=== PATIENT | male | born 1935 | race Caucasian/White ===

== ENCOUNTER → 2019-11-18 | Outpatient (CLI) | payer MEDICARE, SELFPAY | END | disposition home or self-care (01) | PROVIDERS: Visit Provider Dermatology | DX: Z48.817 Encounter for surgical aftercare following surgery on the skin and subcutaneous tissue (principal) | CPT/HCPCS: 87070; 87077; 87186; 87205 ==

== ENCOUNTER 2020-07-14 12:37 | Outpatient (RCR) | payer MEDICARE, SELFPAY | END 2020-07-14 23:59 | LOC: IMMUN 12:37 | PROVIDERS: PCP Internal Medicine; Visit Provider Family Medicine | DX: Z23 Encounter for immunization (principal) | CPT/HCPCS: 0011A; 0012A; 91301 ==

== ENCOUNTER → 2023-10-17 | Outpatient (CLI) | payer MEDICARE, SELFPAY ==
[2023-10-17 12:22] LABS: Hematocrit 39.9 % (40-54); Hemoglobin 13.4 g/dL (13.0-16.5); Mean Corp Hgb Conc 33.6 g/dL (32-36); Mean Corpuscular Hgb 32.6 pg (27.0-32.0); Mean Corpuscular Volume 97.1 fL (80-94); Mean Platelet Vol. 10.5 fl (6.2-12.0); Platelet Count 224 K/mm3 (150-450); RBC Distribution Width CV 13.2 % (11.6-14.6); RBC Distribution Width SD 47.8 fl (35.1-43.9); Red Blood Count 4.11 M/mm3 (4.6-6.2)
[2023-10-17 13:28] LABS: Anion Gap 4 (5-15); BUN 20 mg/dL (7-18); BUN/Creat Ratio 21.4 RATIO (10-20); Calcium,Total 9.6 mg/dL (8.5-10.1); Chloride 107 mmol/L (98-107); Creatinine, Serum 0.93 mg/dL (0.70-1.30); EST Glomerular Filtration Rate 82 mL/min (>60); Est Glom Filt Rate - Afr Amer 99 mL/min (>60); Glucose 88 mg/dL (74-106); Potassium 4.3 mmol/L (3.5-5.1); Sodium Level 138 mmol/L (136-145)
== END | disposition home or self-care (01) ==
PROVIDERS: PCP Internal Medicine; Referring Provider Physician Assistant Surgical; Visit Provider Physician Assistant Surgical
DX: Z01.818 Encounter for other preprocedural examination (principal)
CPT/HCPCS: 36415; 80048; 85027

== ENCOUNTER → 2024-02-05 | Outpatient (CLI) | payer MEDICARE, SELFPAY ==
--- NOTE | 2024-02-05 09:00 | ASPOS_PTH ---
PATIENT: CHRISTINA HUDDLESTON LOC: LAB U#:[id number] AGE/SX: 88/M ROOM: RE02/05/[address]: Dr. Cory Obrien MD : [id number] BED: DIS: 02/05/2024 SPEC #: [id number] RECD: 02/05/24 09:30 STATUS: BENNIE REDaly #: [id number] NATY: 02/05/24 09:[address]: Cory Obrien DEPT: CYTOLOGY RECD BY: Emily Henry ENTERED: 02/05/24 11:20 SP TYPE: ASP HERE OTHR DR: Dr. Anne Moulton MD Tissues: Neck, NOS Procedures: Surgery Specimen Level IV Cytology Other Fine Needle Asp on Site HEADER OPERATION: Fine needle aspiration left post neck PRE-OP DIAGNOSIS: Left post neck TISSUE SUBMITTED: Smears and fluid for cytology DIAGNOSIS CYTOLOGY Fine needle aspiration, left posterior neck mass (smears and cellblock): Mature adipose tissue consistent with lipoma. See comment. AM/mr 02/06/2024 COMMENT The specimen is evaluated at the time of biopsy by Dr. Leigh. Immediate Evaluation = Mature adipose tissue consistent with lipoma. CYTOLOGY STUDY Slides are reviewed. CYTOLOGY GROSS Received is 0.2 ml of vela material labeled with the patient's name, and designated Left neck. 3 imprints and 2 paps are made from the submitted fluid and the rest is added to CytoLyt for cell block preparation. Submitted for cytology study. AM/mr 02/05/2024 TC:5 CPT:82155,[id number]
== END | disposition home or self-care (01) ==
LOC: LAB 09:09
PROVIDERS: PCP Internal Medicine; Referring Provider Otolaryngology; Visit Provider Otolaryngology
DX: R22.1 Localized swelling, mass and lump, neck (principal)
CPT/HCPCS: 10021; 88161; 88305

== ENCOUNTER → 2024-09-01 | Outpatient (CLI) | payer MEDICARE, SELFPAY ==
--- NOTE | 2024-09-01 17:03 | MRI_ITS ---
PROCEDURE: MRI left hand without and with IV contrast REASON FOR EXAM: SUSPECTED MASS TECHNIQUE: Multisequence multiplanar MR images of the left hand were obtained before and after the administration of 15 mL of intravenous Clariscan contrast. COMPARISON: None. FINDINGS Ovoid cystic lesion along the palmar aspect of the 5th flexor tendon at the level of the proximal phalanx abutting the flexor tendon sheath measuring 10 x 15 x 19 mm (AP, TV and CC dimensions) without associated enhancement or surrounding soft tissue edema. Adjacent flexor tendon is intact. No tenosynovitis. Osseous structures are intact and without evidence of fracture, marrow edema or marrow replacement. Flexor and extensor tendons are intact. Collateral ligaments are intact. No joint effusions. Normal alignment. MRI/Upper Ext No Joint W/WO Cont IMPRESSION: Nonspecific nonenhancing cystic lesion abutting the 5th flexor tendon at the le quinn of the proximal phalanx, potentially a ganglion. Reading Location: [facility]
== END | disposition home or self-care (01) ==
LOC: MRI 16:37
PROVIDERS: PCP Internal Medicine; Referring Provider Surgery Plastic and Reconstructive Surgery; Visit Provider Surgery Plastic and Reconstructive Surgery
DX: R60.9 Edema, unspecified (principal)
CPT/HCPCS: 73220; A9575; A4216

== ENCOUNTER 2024-10-05 06:56 | Day surgery (SDC) | payer MEDICARE, SELFPAY ==
--- NOTE | 2024-09-30 18:45 | PAT.ANE_ITS ---
Pre-Assessment Diagnosis/Proposed Procedure Planned Operative Procedure(s): (L) Excision left small finger mass Anesthesia History Anesthesia History - ethyl blender: Anesthesia History - ethyl blender Hx Hospitalization No 09/30/24 13:06 Any Problems With Anesthesia Yes: DURING SHOULDER SURGERY 09/30/24 13:06 TROUBLE BREATHING TOWARDS END DUE TO BAD LUNGS Cholinesterase deficiency No 09/30/24 13:06 You/Your Family Experience No 09/30/24 13:06 fever (hyperthermia) with Relationship Recent Exposure to Contagious Disease Does patient have nerve No 09/30/24 13:06 stimulator Patient instructed to have device shut off --Does patient have Pacemaker or ICD? When Was Last Pacemaker Check QUESTION #4 FULL TEXT: You/Your Family Experience fever (hyperthermia) with Anesthesia Last Oral Intake Last Oral intake: Last Oral Intake NPO since Meds taken in AM with sips of water? Meds patient instructed to take am of surgery PONV PONV - ethyl blender: PONV - ethyl blender Female No 09/30/24 13:06 HX of Motion Sickness Yes 09/30/24 13:06 HX of N/V After Surgery No 09/30/24 13:06 Non-Smoker Yes 09/30/24 13:06 Duration of Surgery greater No 09/30/24 13:06 than 60 minutes Number of Risk Factors 2 09/30/24 13:06 PONV Score Moderate Risk 09/30/24 13:06 Height & Weight Height & Weight: Anesthesia: Height & Weight Height 5 ft 6.5 in 07/29/23 09:55 Respiratory Assessment Respiratory Assessment - ethyl blender: Respiratory Tract Infection Hx - ethyl blender Hx Respiratory Tract Infection No 09/30/24 13:06 STOP Sleep Apnea STOP Sleep Apnea - ethyl blender: STOP Sleep Apnea - ethyl blender Hx Hypertension Yes: CONTROLLED WITH MED 09/30/24 13:06 Hx Sleep Apnea No 09/30/24 13:06 CPAP BIPAP Do you snore loudly (louder No 09/30/24 13:06 than talking or can be heard Do you often feel tired/ No 09/30/24 13:06 fatigued/ sleepy during daytime? Has anyone observed you stop No 09/30/24 13:06 breathing during sleep? STOP Results Negative 09/30/24 13:06 QUESTION #5 FULL TEXT : Do you snore loudly (louder than talking or can be heard through closed doors)? 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 Specify any problems Hx of Preganancy in last 3 N/A 09/30/24 13:06 Months Nurse Filling Out Transfusion NBUCHER 09/30/24 13:06 & Questions: Date: 09/30/24 09/30/24 13:06 Time: 13:09 09/30/24 13:06 Patient unable to answer at this time (ie. confused, unrespo /Reproduction History /Reproductive History - ethyl blender: /Reproductive Hx- ethyl blender Hx Now No 09/30/24 13:06 Gestational Age (in weeks): EDC: Hx Hx Para Hx Section SAB No 09/30/24 13:06 PFSH Medical History (Updated 09/30/24 @ 13:16 by Lidia Gonzalez) Wears hearing aid Loss of hearing Wears glasses BPH (benign prostatic hyperplasia) Cancer Anxiety History of steroid therapy Prostate disease Syncope Former smoker Heartburn Gastric reflux History of edema History of echocardiogram History of stress test History of Holter monitoring Cardiology follow-up encounter Nonsustained paroxysmal ventricular tachycardia Dyspnea on exertion Orthostatic hypotension SVT (supraventricular tachycardia) Syncope BPH associated with nocturia Hyperlipidemia Recurrent urticaria GERD (gastroesophageal reflux disease) Asthma History of panic attacks Diverticulosis of colon Benign neoplasm of colon Home Medications ?Medication ?Instructions ?Recorded ?Last Taken ?Type albuterol sulfate 90 mcg/actuation 2 puff inhalation Q 4H PRN 11/22/20 Unknown History aerosol inhaler shortness of breath or wheez ing glucosamine 500 1 cap PO BID 11/22/20 Unknow n History dn-f[place]-cjwecvtl comp 400 mg-D3 667 unit-C-Mn cap montelukast 10 mg tablet 10 mg PO DAILY 11/22/20 Unkn own History sertraline 25 mg tablet 25 mg PO DAILY 11/22/20 Unkn own History vit C 250 mg-vit E 90 mg-zinc 40 1 tab PO BID 11/22/20 Unknown History mg-copper 1 yi-izwwnt-zuqaxq capsule (PreserVision AREDS-2) metoprolol succinate 25 mg 25 mg PO DAILY #90 tabs Unknown Rx tablet,extended release 24 hr (Toprol XL) losartan 50 mg tablet 50 mg PO DAILY #90 tabs 03/24 03/16 Unknown Rx prednisone 10 mg tablet See Taper PO PRN PRN BRONCHI TIS 08/31/24 Unknown History multivitamin (Daily Multi-Vitamin 1 tab PO DAILY 09/30 Unknown History tablet) Allergy/AdvReac Type Severity Reaction Status Date / Time No Known Allergies Allergy Verified 09/30/24 13:02 Family History Father Colon cancer Cancer Leukemia Parkinson's disease Mother Alzheimer's disease Surgical History (Updated 09/30/24 @ 13:16 by Lidia Gonzalez) History of bilateral carpal tunnel release (~2023) History of prostate biopsy (~2005) History of colonoscopy History of eye surgery History of repair of right rotator cuff History of appendectomy (~2008) Social History Smoking Status: Former smoker how long ago did patient quit smokin years ago second hand exposure: No alcohol intake: current substance use type: does not use Audit: Pertinent Findings Pertinent Findings EKG Perinent findings: November 22, 2020 sinus bradycardia within normal limits. Stress test pertinent findings: November 01, 2020. Negative for ischemia. 7.6 METS. Ejection fraction 61%. Echo (EF%) pertinent findings: September 13, 2020. Ejection fraction 65%. No significant valvular abnormalities. Consult pertinent findings: July 29, 2023. Bill LAGUNA. 1. Nonsustained paroxysmal ventricular zaoaatntdpa-crkfk-jywejzur in September 2020. Patient denies any recent symptoms or events. Continue metoprolol. 2. Hypertension?acute-mildly elevated in the office. States his blood pressures at home are better. He will continue to monitor. No changes to medications at this time. Additional pertinent findings: 14-day monitor. 09/25/2020. Predominantly sinus rhythm. 5 runs of V. tach. 61 supraventricular tachycardic runs. Recommendation Anesthesia Recommendation Anesthesia recommendation: OPTIMIZED for anesthesia
[2024-10-05] VITALS (8 sets, daily range): BP systolic 111–144; BP diastolic 61–83; PULSE 57–81; RESP 16–18; TEMP 36.1–36.3; O2SAT 97–100; BMI 28.5
--- NOTE | 2024-10-05 07:52 | PRE.ANES_ITS ---
ASA Classification* ASA Classification ASA Classification: 2 Assessment & Plan Anesthesia* Anesthesia Assessment Anesthesia Assessment: Discussed sedation and/or anesthesia options, risks, benefits, and alternatives with patient/parents/legal guardian/POA. Questions invited. The patient/parents/legal guardian/POA seems to understand and agrees to proceed with anesthesia plan. Reviewed the physical assessment, medical history, allergy history and patient home medications list prior to surgery/procedure/anesthetic and documented any changes. Performed airway and anesthesia risk assessments. Anesthesia Type Anesthesia Type: MAC History Source History Obtained from:: Patient and Chart Anesthesia Focused Assessment* Temperature: 97.0 F Pulse Rate: 61 Blood Pressure: 111/83 Respiratory Rate: 16 Pulse Ox: 99 Oxygen Delivery Method: Room Air Airway Assessment Mouth opens: >3 cm Mallampati Score: III Teeth Condition: Caps/Crowns (Patient has a couple crowns. They are tight.) Neck Range of motion (ROM): Limited ROM (Somewhat decreased extension) Focused Labs Anesthesia Preop lab: CBC WBC 8.0 K/mm3 (4.4-11.0) 10/17/23 12:04 10/17/23 RBC 4.11 M/mm3 (4.6-6.2) L 10/17/23 12:04 10/17/23 Hgb 13.4 g/dL (13.0-16.5) 10/17/23 12:04 10/17/23 Hct 39.9 % (40-54) L 10/17/23 12:04 10/17/23 Plt Count 224 K/mm3 (150-450) 10/17/23 12:04 10/17/23 CHEMISTRY Potassium 4.3 mmol/L (3.5-5.1) 10/17/23 12:04 10/17/23 Sodium 138 mmol/L (136-145) 10/17/23 12:04 10/17/23 BUN 20 mg/dL (7-18) H 10/17/23 12:04 10/17/23 Creatinine 0.93 mg/dL (0.70-1.30) 10/17/23 12:04 10/17/23 Glucose 88 mg/dL (74-106) 10/17/23 12:04 10/17/23 COAG Pre-Assessment Diagnosis/Proposed Procedure Planned Operative Procedure(s): (L) Excision left small finger mass Anesthesia History Anesthesia History - manager mechanical maintenance: Anesthesia History - manager mechanical maintenance Hx Hospitalization No 09/30/24 13:06 Any Problems With Anesthesia Yes: DURING SHOULDER SURGERY 09/30/24 13:06 TROUBLE BREATHING TOWARDS END DUE TO BAD LUNGS Cholinesterase deficiency No 09/30/24 13:06 You/Your Family Experience No 09/30/24 13:06 fever (hyperthermia) with Relationship Recent Exposure to Contagious No 10/05/24 07:21 Disease Does patient have nerve No 09/30/24 13:06 stimulator Patient instructed to have device shut off --Does patient have Pacemaker No 10/05/24 07:21 or ICD? When Was Last Pacemaker Check QUESTION #4 FULL TEXT: You/Your Family Experience fever (hyperthermia) with Anesthesia Last Oral Intake Last Oral intake: Last Oral Intake NPO since 05:00 10/05/24 07:21 Meds taken in AM with sips of Yes 10/05/24 07:21 water? Meds patient instructed to LOSARTAN 10/05/24 07:21 take am of surgery Any additional information?: Yes NPO since: 05:00 (Patient took his a.m. losartan at 5 AM.) Meds taken in AM with sips of water?: Yes PONV PONV - manager mechanical maintenance: PONV - manager mechanical maintenance Female No 09/30/24 13:06 HX of Motion Sickness Yes 09/30/24 13:06 HX of N/V After Surgery No 09/30/24 13:06 Non-Smoker Yes 09/30/24 13:06 Duration of Surgery greater No 09/30/24 13:06 than 60 minutes Number of Risk Factors 2 09/30/24 13:06 PONV Score Moderate Risk 09/30/24 13:06 Height & Weight Height & Weight: Anesthesia: Height & Weight Height 5 ft 6 in 10/05/24 07:21 Weight: 80.3 kg 10/05/24 07:21 Body Mass Index (BMI) 28.5 10/05/24 07:21 Respiratory Assessment Respiratory Assessment - manager mechanical maintenance: Respiratory Tract Infection Hx - manager mechanical maintenance Hx Respiratory Tract Infection No 09/30/24 13:06 STOP Sleep Apnea STOP Sleep Apnea - manager mechanical maintenance: STOP Sleep Apnea - manager mechanical maintenance Hx Hypertension Yes: CONTROLLED WITH MED 09/30/24 13:06 Hx Sleep Apnea No 09/30/24 13:06 CPAP BIPAP Do you snore loudly (louder No 09/30/24 13:06 than talking or can be heard Do you often feel tired/ No 09/30/24 13:06 fatigued/ sleepy during daytime? Has anyone observed you stop No 09/30/24 13:06 breathing during sleep? STOP Results Negative 09/30/24 13:06 QUESTION #5 FULL TEXT : Do you snore loudly (louder than talking or can be heard through closed doors)? 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 Specify any problems Hx of Preganancy in last 3 N/A 09/30/24 13:06 Months Nurse Filling Out Transfusion NBUCHER 09/30/24 13:06 & Questions: Date: 09/30/24 09/30/24 13:06 Time: 13:09 09/30/24 13:06 Patient unable to answer at this time (ie. confused, unrespo /Reproduction History /Reproductive History - manager mechanical maintenance: /Reproductive Hx- manager mechanical maintenance Hx Now No 09/30/24 13:06 Gestational Age (in weeks): EDC: Hx Hx Para Hx Section SAB No 09/30/24 13:06 Active Medications Active Medications: Current Medications Generic Name Dose Route Start Last Admin Trade Name Freq PRN Reason Stop Dose Admin Cefazolin Sodium 2 gm/ N/A 20 mls @ 400 mls/hr 10/05/24 08:40 IV 10/05/24 08:42 PREOP [facility] Medical History Wears hearing aid Loss of hearing Wears glasses BPH (benign prostatic hyperplasia) Cancer Anxiety History of steroid therapy Prostate disease Syncope Former smoker Heartburn Gastric reflux History of edema History of echocardiogram History of stress test History of Holter monitoring Cardiology follow-up encounter Nonsustained paroxysmal ventricular tachycardia Dyspnea on exertion Orthostatic hypotension SVT (supraventricular tachycardia) Syncope BPH associated with nocturia Hyperlipidemia Recurrent urticaria GERD (gastroesophageal reflux disease) Asthma History of panic attacks Diverticulosis of colon Benign neoplasm of colon Home Medications ?Medication ?Instructions ?Recorded ?Last Taken ?Type albuterol sulfate 90 mcg/actuation 2 puff inhalation Q 4H PRN 11/22/20 Unknown History aerosol inhaler shortness of breath or wheez ing glucosamine 500 1 cap PO BID 11/22/20 Unknow n History ff-qpashtywf-zheesomd comp 400 mg-D3 667 unit-C-Mn cap montelukast 10 mg tablet 10 mg PO DAILY 11/22/20 Unkn own History sertraline 25 mg tablet 25 mg PO DAILY 11/22/20 Unkn own History vit C 250 mg-vit E 90 mg-zinc 40 1 tab PO BID 11/22/20 Unknown History mg-copper 1 jt-lerjfy-maqijn capsule (PreserVision AREDS-2) metoprolol succinate 25 mg 25 mg PO DAILY #90 tabs Unknown Rx tablet,extended release 24 hr (Toprol XL) losartan 50 mg tablet 50 mg PO DAILY #90 tabs 03/2410/05/24 05:00 Rx prednisone 10 mg tablet See Taper PO PRN PRN BRONCHI TIS 08/31/24 Unknown History multivitamin (Daily Multi-Vitamin 1 tab PO DAILY 09/30 Unknown History tablet) Allergy/AdvReac Type Severity Reaction Status Date / Time No Known Allergies Allergy Verified 10/05/24 07:20 Family History Father Colon cancer Cancer Leukemia Parkinson's disease Mother Alzheimer's disease Surgical History History of bilateral carpal tunnel release (~2023) History of prostate biopsy (~2005) History of colonoscopy History of eye surgery History of repair of right rotator cuff History of appendectomy (~2008) Social History Smoking Status: Former smoker how long ago did patient quit smokin years ago second hand exposure: No alcohol intake: current substance use type: does not use Review of Systems (Anesthesia) ROS Narrative System reviewed and no additional complaints, except as documented.
[2024-10-05] MEDS: Ipratropium/Albuterol Sulfate 3 ML AMPUL.NEB INHALATION (08:00)
--- NOTE | 2024-10-05 08:01 | PCM.HP.STD ---
HPI - General HPI Narrative Robert Rothman is a delightful 89-year-old male who is right-hand dominant and retired who has a left small finger mass on the volar surface of P1 that has been present for about a month and rapidly growing. It causes him some discomfort as it is limiting his hand movements including small finger flexion secondary to pressure. The mass does not drain. No constitutional symptoms or weight loss. He has never had cancer other than skin cancers before. He does have a remote history of smoking but has quit. CURRENT ENCOUNTER, 14 September 2024: Here to discuss results of the MRI. No change in the finger mass other than he thinks it might of gotten just slightly bigger. Current Encounter (DATE OF SURGERY H&P UPDATE): I saw and examined the patient this morning in pre-operative holding. We discussed risks and benefits of today's surgery and they would like to proceed. NO CHANGE in health history since last seen and evaluated. Ready to proceed with surgery. [facility] Medical History Wears hearing aid Loss of hearing Wears glasses BPH (benign prostatic hyperplasia) Cancer Anxiety History of steroid therapy Prostate disease Syncope Former smoker Heartburn Gastric reflux History of edema History of echocardiogram History of stress test History of Holter monitoring Cardiology follow-up encounter Nonsustained paroxysmal ventricular tachycardia Dyspnea on exertion Orthostatic hypotension SVT (supraventricular tachycardia) Syncope BPH associated with nocturia Hyperlipidemia Recurrent urticaria GERD (gastroesophageal reflux disease) Asthma History of panic attacks Diverticulosis of colon Benign neoplasm of colon Home Medications ?Medication ?Instructions ?Recorded ?Last Taken ?Type albuterol sulfate 90 mcg/actuation 2 puff inhalation Q4H PRN 11/22/20 Unknown History aerosol inhaler shortness of breath or wheezing glucosamine 500 1 cap PO BID 11/22/20 Unknown History sr-qedrbjeir-wsqtwxku comp 400 mg-D3 667 unit-C-Mn cap montelukast 10 mg tablet 10 mg PO DAILY 11/22/20 Unknown History sertraline 25 mg tablet 25 mg PO DAILY 11/22/20 Unknown History vit C 250 mg-vit E 90 mg-zinc 40 1 tab PO BID 11/22/20 Unknown History mg-copper 1 zt-zwhqle-bhltli capsule (PreserVision AREDS-2) metoprolol succinate 25 mg 25 mg PO DAILY #90 tabs 03/22/24 Unknown Rx tablet,extended release 24 hr (Toprol XL) losartan 50 mg tablet 50 mg PO DAILY #90 tabs 04/20/24 10/05/24 05:00 Rx prednisone 10 mg tablet See Taper PO PRN PRN BRONCHITIS 08/31/24 Unknown History multivitamin (Daily Multi-Vitamin 1 tab PO DAILY 09/30/24 Unknown History tablet) Allergy/AdvReac Type Severity Reaction Status Date / Time No Known Allergies Allergy Verified 10/05/24 07:20 Family History Father Colon cancer Cancer Leukemia Parkinson's disease Mother Alzheimer's disease Surgical History History of bilateral carpal tunnel release (~2023) History of prostate biopsy (~2005) History of colonoscopy History of eye surgery History of repair of right rotator cuff History of appendectomy (~2008) Social History Smoking Status: Former smoker how long ago did patient quit smokin years ago second hand exposure: No alcohol intake: current substance use type: does not use Vital Signs Vital Signs Vital Signs: 10/05/24 07:21 10/05/24 07:21 10/05/24 08:00 Temperature 97.0 F L 97.0 F L Temperature Source Temporal Pulse Rate 61 61 Respiratory Rate 16 16 Respiratory Pattern Normal Blood Pressure 111/83 H 111/83 H Blood Pressure Mean 92 Blood Pressure Source Monitor Blood Pressure Position Sitting Blood Pressure Location Left Arm Pulse Ox 99 99 Oxygen Delivery Method Room Air Room Air Weight Weight: 177 lb 0.499 oz Body Mass Index (BMI) 28.5 Physical Exam Narrative Left Upper Extremity Inspection: Soft tissue mass on the volar side of P1 of the left small finger. Palpation: Tight skin over the volar small finger subcutaneous mass on the volar surface of P1. Fixed. The mass is not mobile. Negative Tinel's. The mass does transilluminate No axillary or antecubital lymphadenopathy. Motor: Able to bend and extend all MP, PIP, and DIP joints. Sensory: Intact to light touch on the radial and ulnar borders. Vascular: Finger tips are warm and well perfused with <2 second capillary refill. Assessment & Plan Assessment/Plan (1) Mass of finger of left hand: PLAN: Plan We discussed the differential diagnosis for the mass. Common masses in the hand include ganglion cyst of tendon sheath, giant cell tumor of tendon sheath, and lipoma. All these masses are benign. We also discussed that over 95% of the masses found in the hand and fingers are benign, and not cancerous. Treatment options for these masses include observation vs surgical excision, but given that it has had a rapid growth and appears to be fixed with tight skin, I recommended MRI. Patient was in agreement. We are ordering MRI of the left small finger with and without contrast. Follow-up following imaging (ordered imaging urgently) Plan from 14 September 2024: Discussed MRI findings. I talked him about the risks, benefits, and alternatives to excision versus watchful waiting versus aspiration. He would like it removed as it has become bothersome. I talked him about the planned incisions. We talked about the risk of infection, bleeding, damage to surrounding structures especially digital nerves and arteries, damage to jimmie structures, recurrence of the mass/failure to obtain the desired result (especially if it is a hand tumor that has a high recurrence rate such as a giant cell tumor). I talked him about persistent numbness and paresthesias as a risk. Plan to excise under local and sedation in the OR. INTERVAL H&P PLAN, DATE OF SURGERY: I talked to the patient extensively about the risks of surgery, including bleeding, infection, damage to surrounding structures, poor scaring, surgical site dehiscence and wound formation, need for wound care, poor scaring, recurrence of the mass need for repeat operations, failure to obtain the desired result, DVT/PE, and the risks of anesthesia including , including stroke (from low blood pressure/ischemia or clot). The benefits and alternatives of this surgery were also discussed. All of their questions were answered, and they agreed to proceed with surgery.
--- NOTE | 2024-10-05 08:40 | MASS_PTH ---
PATIENT: CHRISTINA HUDDLESTON [place] [facility] [place][id number] AGE/SX: 89/M ROOM: RE10/05/[address]: Dr. Bandar Bartholomew MD : 1935 BED: DIS: 10/05/2024 SPEC #: [id number] RECD: 10/05/24 13:40 STATUS: BENNIE EVERETTE #: [id number] NATY: 10/05/24 08:[address]: Bandar Bartholomew DEPT: SURGICAL PATHOLOGY RECD BY: Sam Lee ENTERED: 10/05/24 13:40 SP TYPE: Mass OTHR DR: Dr. Anne Moulton MD Tissues: A - Finger, NOS Procedures: Surgery Specimen Level III HEADER OPERATION: Excison left small finger mass PRE-OP DIAGNOSIS: Left small finger mass TISSUE SUBMITTED: A- Left small finger mass MICROSCOPIC DIAGNOSIS A. Left small finger, mass, excision: * Fragments of fibrous tissue suggestive of ganglion cyst. MICROSCOPIC DESCRIPTION Slides are reviewed. GROSS DESCRIPTION A. Received in formalin in a container labeled with the patient's name, date of , and left small finger mass is a 1.2 x 0.8 x 0.5 cm fragment of white-fenton, wispy soft tissue. Sectioning reveals uniform surfaces. Submitted entirely in A1. [facility] 10-05-2024 CPT:11527
--- NOTE | 2024-10-05 09:15 | PCM.OPRPT ---
Operative Report (Standard) Operative Information Date of Procedure: 10/05/24 Pre-Operative Diagnosis: Left small finger mass Post-Operative Diagnosis: Same Surgery/Procedure Performed: 1) Excision of left small finger mass, 1.5 x 1.7 cm (CPT: 31084) runner on: Yes Fitting Room Maintenance Mechanic: Dani Foote Tasks completed by biology research assistant: Retracting Type of Anesthesia: Local MAC (5 cc of 50/50 mixture of 1% lidocaine and 0.25% Marcaine ) RN Documented Start/Stop Times: Operation Date: 10/05/24 08:40 Case Time Into Pre-Op 10/05/24 07:07 Out of Pre-Op 10/05/24 09:07 Anesthesia Start 10/05/24 09:08 Into Room 10/05/24 09:08 Procedure Start 10/05/24 09:36 Procedure End 10/05/24 09:58 Anesthesia End 10/05/24 10:03 Out of Room 10/05/24 10:03 Into Recovery 10/05/24 10:05 Out of Recovery 10/05/24 10:15 Into Phase II Recovery 10/05/24 10:16 Procedure Start Time: 09:36 Procedure Stop Time: 09:58 Select all DRAINS/GRAFTS/IMPLANTS that apply: None Estimated Blood Loss: minimal Specimen collected: Yes Description of specimen(s) removed: Left small finger volar mass Description of surgery: Indications: Robert Rothman is a delightful 89-year-old male with a left small finger volar mass over the flexor tendon at the level of P1. He had an MRI and it demonstrated a well-circumscribed mass consistent with a potential ganglion. The mass is putting pressure on the skin and getting larger. He presents today for excision. I talked to him about risks, benefits, and alternatives to excision, including but not limited to poor scarring/contracture, infection, bleeding, damage to surrounding structures including digital arteries (poor finger perfusion) and digital nerves (numbness). He elected to proceed with the procedure. Procedure details: Patient was correctly identified in preoperative holding and the mass and the correct finger was marked with him and his in agreement with the site marking. He was taken back to the operating room where he was administered sedation and local anesthesia. A tourniquet in the left arm was inflated to 250 mmHg. He was prepped and draped in sterile fashion. A timeout was performed. With the use of the microscope, an oblique incision was made over the volar surface at the level of P1 on the small finger. This immediately exposed the mass in the subcutaneous tissue. The digital nerves were identified and and preserved; they were deep to the mass. The mass was excised circumferentially with tenotomy scissors and sent to pathology (ruptured before it was sent -- there was ganglion cyst-type fluid within the mass). The mass measured about 1.5 x 1.7 cm before it ruptured, which was consistent with the MRI. It was sent to pathology (the cyst wall). It was consistent with ganglion. The wound was irrigated with copious amounts normal saline. The tourniquet was deflated and hemostasis was obtained with bipolar electrocautery. The wound was closed with horizontal mattress 4-0 nylon suture. Xeroform, Mir, and loose Coban were applied. Patient was awakened and taken to the PACU in stable condition and tolerated the procedure well. Surgical Findings: Consistent with ganglion Complications Complications: No Admit VTE Documentation VTE Mechan Device Prophylaxis: SCD's
[2024-10-05] MEDS: Cefazolin 2 GM in Syringe IV (09:16)
[2024-10-05] MEDS: Bupivacaine 0.25% 30 ML Vial (09:36)
[2024-10-05] MEDS: Lidocaine 1% (20 ml mdv) 20 ML Vial (09:36)
--- NOTE | 2024-10-05 10:14 | PCM.POST.ANE ---
Anesthesia: Postop Eval I Current Vital Signs Temperature: 97.2 F Pulse Rate: 80 Blood Pressure: 120/61 Respiratory Rate: 18 Pulse Ox: 98 Oxygen Delivery Method: Room Air Assessment Airway patent: Yes Spontaneous unlabored respirations: Yes Mental status: Awake nausea: No Vomiting: No Anesthesia Complication: No Fluid Hydration Crystalloid volume administer (ml): 5 Total IV fluid infused: 5 Progress Note Anesthesia document: Postop Eval 1 completed: Yes
--- NOTE | 2024-10-05 11:08 | POSTOPAN2_ITS ---
Anesthesia Postop Eval I Sum Postop Eval Completion status Anesthesia document: Postop Eval 1 completed: Yes Anesthesia Postop Eval I Summary Anesthesia Postop Eval I Summary: Anesthesia Postop Eval I: Assessment Summary Airway patent Yes 10/05/24 10:14 [email or web address] Spontaneous unlabored Yes 10/05/24 10:14 [email or web address] respirations Mental status Awake 10/05/24 10:14 [email or web address] nausea No 10/05/24 10:14 [email or web address] Vomiting No 10/05/24 10:14 [email or web address] Anesthesia Postop Eval I: Fluid Summary Crystalloid volume administer 5 10/05/24 10:14 [email or web address] (ml) Colloids volume administered ( ml) Blood Product volume administered (ml) Total IV fluid infused 5 10/05/24 10:14 [email or web address] Anesthesia Postop Eval I: Summary Notes Anesthesia Complication No 10/05/24 10:14 [email or web address] Anesthesia Complication Comment: Post-operative progress note Anesthesia: Postop Eval II Evaluation Mental status: Awake and Calm Pain Level: 0 nausea: No Vomiting: No Complications Anesthesia Complication: No
--- NOTE | 2024-10-05 11:08 | PCM.POSTANE2 ---
Anesthesia Postop Eval I Sum Postop Eval Completion status Anesthesia document: Postop Eval 1 completed: Yes Anesthesia Postop Eval I Summary Anesthesia Postop Eval I Summary: Anesthesia Postop Eval I: Assessment Summary Airway patent Yes 10/05/24 10:14 TEST [email or web address] Spontaneous unlabored Yes 10/05/24 10:14 TEST [email or web address] respirations Mental status Awake 10/05/24 10:14 TEST [email or web address] nausea No 10/05/24 10:14 TEST [email or web address] Vomiting No 10/05/24 10:14 [email or web address] Anesthesia Postop Eval I: Fluid Summary Crystalloid volume administer 5 10/05/24 10:14 TEST [email or web address] (ml) Colloids volume administered ( ml) Blood Product volume administered (ml) Total IV fluid infused 5 10/05/24 10:14 TEST [email or web address] Anesthesia Postop Eval I: Summary Notes Anesthesia Complication No 10/05/24 10:14 TEST [email or web address] Anesthesia Complication Comment: Post-operative progress note Anesthesia: Postop Eval II Evaluation Mental status: Awake and Calm Pain Level: 0 nausea: No Vomiting: No Complications Anesthesia Complication: No
== END 2024-10-05 10:55 | disposition home or self-care (01) ==
LOC: SDC 06:56 → AC 06:58
PROVIDERS: PCP Internal Medicine; Referring Provider Surgery Plastic and Reconstructive Surgery; Visit Provider Surgery Plastic and Reconstructive Surgery
PROC: (CPT 26111; principal; 2024-10-05 08:25)
DX: R22.32 Localized swelling, mass and lump, left upper limb (principal); N40.0 Benign prostatic hyperplasia without lower urinary tract symptoms; F41.9 Anxiety disorder, unspecified; Z79.899 Other long term (current) drug therapy; Z87.891 Personal history of nicotine dependence
CPT/HCPCS: 26111; 00400; 88304; 94640; A4216; J2405